=== PATIENT | female | born 1975 | race Caucasian/White ===

== ENCOUNTER 2021-03-16 03:59 | Emergency (ER) | payer OTHER ==
[2021-03-16] MEDS ORDERED: LORazepam 2 MG/ML SDV IVPUSH ONE ×3 (04:43→12:24)
[2021-03-16 04:44] LABS: CARBON DIOXIDE,CO2 26.2 mmol/L (21.0-32.0); POTASSIUM,K 3.9 mmol/L (3.5-5.1)
--- NOTE | 2021-03-16 04:49 | EDM.PDOC ---
<Ibrahima Sevilla - Last Filed: 03/16/21 05:11> ED HPI GENERAL MEDICAL PROBLEM - General Chief Complaint: Back Pain or Injury Stated Complaint: SPINAL PAIN; POSSIBLE POST COVID Time Seen by Provider: 03/16/21 04:02 - History of Present Illness INITIAL COMMENTS - FREE TEXT/NARRATIVE: 45-year-old female history of obesity history of baseline spinal disc disease back pain related to bulging disks related to ball riding when she was 18. Recently moved up here from [place]. Not currently on any chronic pain medication but does take benzodiazepines regularly for anxiety. She went to her nephew's birthday constitution party on February 24 and contracted Covid at that constitution party. She became symptomatic on the and tested positive on the . Since the October she has had a gradually progressive numbness and weakness that starts at the level of T8 and has progressed distally since that time becoming denser and more pronounced she was cleared from quarantine on March 09 and on that day she had a fall leading to an acute worsening of her lower back pain. She reports an episode of urinary incontinence kitchen some days ago no history of fecal incontinence. She is able to walk but somewhat unsteady and this weakness is what led to the fall on February 17. She did have an episode of urinary incontinence few days ago that she attributed to the coughing that she was having while she had more classic Covid symptoms. She reports significant constipation over the last several days as well. No fevers no chills no myalgias. Had again cleared from quarantine on March 09. Patient has no history of IV drug abuse. Middle Back Pain Score (Numeric/FACES): 7 - Related Data Allergies Allergy/AdvReac Type Severity Reaction Status Date / Time meperidine [From Demerol] Allergy Intermediate Excitabilit Verified 03/16/21 04:23 y Sulfa (Sulfonamide Allergy Intermediate Hives Verified 03/16/21 04:23 Antibiotics) ED ROS GENERAL - Review of Systems Review Of Systems: See Below Free Text/Narrative/Comment: General: No fever. Skin: No rash. Eyes: No vision problems. ENT: No sore throat. Neck: No neck stiffness. Respiratory: No shortness of breath. Cardiac: No chest pain. Gastrointestinal: No nausea, vomiting or abdominal pain. Urinary: No dysuria. Musculoskeletal: Per HPI Neurologic: Per HPI ED EXAM, GENERAL - Physical Exam Exam: See Below Free Text/Narrative:: General Appearance: No acute distress, appears comfortable Skin: No rash HEENT: Normocephalic/atraumatic, sclera anicteric, mucous membranes moist Neck: Normal range of motion Chest and Lungs: Bilateral breath sounds, clear to auscultation Cardiovascular: Regular rate and rhythm, no murmur Abdomen: Soft, non-tender Back: Midline tenderness at L1-L2 no step-off or deformity Musculoskeletal: No edema or tenderness Neurologic: Diminished sensation starting at the level of T8 and is relatively homogenous from T8 caudally, diminished to absent reflexes in bilateral lower extremities including patellar and Achilles, diminished sensation of the genitals in the anus and diminished rectal tone Psychiatric: Appropriate, cooperative Departure - Departure Disposition: DC/Tfer to Acute Hospital 02 Clinical Impression: Leg weakness, bilateral - Discharge Information Referrals: Kat Rojas DO [Primary Care Provider] - Forms: ED Department Discharge - Assessment/Plan Assessment:: 45-year-old female presenting with objective signs of spinal cord dysfunction. Certainly COVID-19 related myelitis is a consideration though there was a fall on March 09 the spinal symptoms really preceded this. It is possible that there is also a new fracture or bulging disc from this fall that is also leading to cauda equina. However I think this double etiology explanation is much less likely. We do not have neurological specialist or MRI capability at this facility so the patient will need to be transferred to higher level of care for MRI further evaluation and treatment. 0511: [facility] in [place] is not excepting anything other than acute stroke trauma or STEMI. [facility] in [place] is likewise full. I have contacted [facility] [place] [facility]. They will investigate other potential beds in [place]. If none of these are available then we will need to look outside the state. <Juventino Anderson - Last Filed: 03/16/21 16:15> Course - Vital Signs Last Recorded V/S: Last Vital Signs Temp 96.7 F L 03/16/21 04:13 Pulse 63 03/16/21 11:34 Resp 16 03/16/21 11:34 BP 101/43 L 03/16/21 11:34 Pulse Ox 95 03/16/21 11:34 - Orders/Labs/Meds Labs: Laboratory Tests 03/16/21 03/16/21 03/16/21 Range/Units 04:15 04:15 05:15 WBC 18.11 H (4.0-11.0) K/uL RBC 5.49 (4.30-5.90) M/uL Hgb 16.2 H (12.0-16.0) g/dL Hct 47.4 H (36.0-46.0) % MCV 86.3 (80.0-98.0) fL MCH 29.5 (27.0-32.0) pg MCHC 34.2 (31.0-37.0) g/dL RDW Std Deviation 57.4 (28.0-62.0) fl RDW Coeff of Cody 18 H (11.0-15.0) % Plt Count 296 (150-400) K/uL MPV 11.40 (7.40-12.00) fL Neut % (Auto) 74.4 (48.0-80.0) % Lymph % (Auto) 16.8 (16.0-40.0) % [place] % (Auto) 8.4 (0.0-15.0) % Eos % (Auto) 0.3 (0.0-7.0) % Baso % (Auto) 0.1 (0.0-1.5) % Neut # (Auto) 13.5 H (1.4-5.7) K/uL Lymph # (Auto) 3.0 H (0.6-2.4) K/uL [place] # (Auto) 1.5 H (0.0-0.8) K/uL Eos # (Auto) 0.1 (0.0-0.7) K/uL Baso # (Auto) 0.0 (0.0-0.1) K/uL Nucleated RBC % 0.0 /100WBC Nucleated RBCs # 0 K/uL Sodium 140 (136-145) mmol/L Potassium 3.9 (3.5-5.1) mmol/L Chloride 102 (98-107) mmol/L Carbon Dioxide 26.2 (21.0-32.0) mmol/L BUN 12 (7.0-18.0) mg/dL Creatinine 1.0 (0.6-1.0) mg/dL Est Cr Clr Drug Dosing 71.67 mL/min Estimated GFR (MDRD) 60.0 ml/min Glucose 113 H (74-106) mg/dL Calcium 8.7 (8.5-10.1) mg/dL Magnesium 2.1 (1.8-2.4) mg/dL Total Bilirubin 0.3 (0.2-1.0) mg/dL AST 14 L (15-37) IU/L ALT 36 (14-63) IU/L Alkaline Phosphatase 97 (46-116) U/L Total Protein 6.9 (6.4-8.2) g/dL Albumin 3.4 (3.4-5.0) g/dL Globulin 3.5 (2.6-4.0) g/dL Albumin/Globulin Ratio 1.0 (0.9-1.6) SARS-CoV-2 RNA (HARPREET) POSITIVE H (NEGATIVE) Meds: Medications Discontinued Medications Generic Name Dose Route Start Last Admin Trade Name Freq PRN Reason Stop Dose Admin Gadobenate Dimeglumine 20 ml 03/16/21 13:51 03/16/21 13:52 Gadobenate Dimeglumine 529 Mg/Ml 20 Ml Sdv IVPUSH 03/16/21 13:52 20 ml ONETIME STA Administration Hydromorphone HCl 1 mg 03/16/21 14:30 03/16/21 14:43 Hydromorphone 1 Mg/Ml Syringe IVPUSH 03/16/21 14:31 1 mg ONETIME ONE Administration Ketorolac Tromethamine 15 mg 03/16/21 12:24 03/16/21 12:33 Ketorolac 30 Mg/Ml Sdv IVPUSH 03/16/21 12:25 15 mg ONETIME ONE Administration Lorazepam 1 mg 03/16/21 04:43 03/16/21 04:56 Lorazepam 2 Mg/Ml Sdv IVPUSH 03/16/21 04:44 1 mg ONETIME ONE Administration Lorazepam 1 mg 03/16/21 06:59 03/16/21 07:32 Lorazepam 2 Mg/Ml Sdv IVPUSH 03/16/21 07:00 1 mg ONETIME ONE Administration Lorazepam 1 mg 03/16/21 12:24 03/16/21 12:31 Lorazepam 2 Mg/Ml Sdv IVPUSH 03/16/21 12:25 1 mg ONETIME ONE Administration - Re-Assessments/Exams Free Text/Narrative Re-Assessment/Exam: 03/16/21 08:07 Patient care assumed from night ER physician. Patient is awaiting transfer of care, however, there are no beds available. Transfer center is working on finding a bed. I did call MRI and we can get patient in for MRI imaging of the thoracic and lumbar spine at around noon today. 03/16/21 13:51 Patient is currently at MRI. I did call the transfer center and they note that they are still looking but not having any luck finding bouts. 03/16/21 15:56 No gross abnormalities on MRI imaging. Transfer center is still not having any luck finding beds. I did call [facility] which is on diversion. I did call [facility] which is on diversion. I did call [facility] who did not answer the phone. I did call [facility] in [place] who did not answer the phone. I did call [facility] who will call back. 03/16/21 16:03 [facility] also says they will call back. [facility] is on diversion. 03/16/21 16:15 [facility] did not answer. [facility] will take patient; Dr. Hart will admit Departure - Departure Time of Disposition: 16:15 Condition: Good Sepsis Event Note (ED) - Focused Exam Vital Signs: Vital Signs Pulse Resp BP Pulse Ox 03/16/21 11:34 63 16 101/43 L 95 03/16/21 10:50 65 16 101/41 L 94 L 03/16/21 09:50 63 16 100/56 L 95 03/16/21 08:49 66 18 106/57 L 94 L 03/16/21 07:28 63 18 118/77 99 03/16/21 06:44 74 18 128/85 99 03/16/21 05:20 73 18 130/58 L 97
[2021-03-16] MEDS ORDERED: Ketorolac 30 MG/ML SDV IVPUSH ONE (12:24)
[2021-03-16] MEDS ORDERED: Gadobenate Dimeglumine 529 MG/ML 20 ML SDV IVPUSH STA (13:51)
[2021-03-16] MEDS ORDERED: HYDROmorphone 1 MG/ML Syringe IVPUSH ONE (14:30)
--- NOTE | 2021-03-16 15:19 | MR ---
Indication: Numbness and weakness in the lower extremities from T8 down, left greater than right. Recent COVID. Technique: T2, T1, and STIR sagittal as well as T1 and T2 axial sequences were obtained. Post gadolinium T1 images also acquired. Contrast: 20 mL MultiHance. Comparison: None available. Findings: Alignment is anatomic. No evidence for recent fracture, worrisome bone lesion or pars defect. There is some nonenhancing Modic type 2 reactive marrow signal change along the vertebral endplates at L5-S1. No high grade central canal stenosis. The conus and cauda equina are unremarkable, with the tip of the cord at the L1 level. No abnormal intradural IV gadolinium enhancement in the lumbar region. There is a complex cystic oval mass in the right pelvis measuring at least 55 mm, presumably of adnexal origin. Recommend ultrasound follow-up. T12-L1: The disc is negative. The foramina are patent. L1-2: The disc and facets are negative. The foramina are patent. L2-3: Mild disc and bilateral facet degenerative changes with low-grade foraminal narrowing. L3-4: Moderate vacuum disc degeneration with a small shallow central disc herniation. Moderate facet degenerative changes. Mild foraminal narrowing. L4-5: Large radial fissure in the midline posterior annulus. Mild facet osteoarthritis. Mild foraminal narrowing. L5-S1: Moderate-sized shallow right central and subarticular disc extrusion causing slight posterior displacement of the intraspinal segment of the right S1 nerve root. Impression: 1. No evidence for intrinsic pathology, extrinsic compression or pathologic IV gadolinium enhancement involving the conus medullaris or cauda equina. 2. At L5-S1 there is a moderate-sized shallow right central and subarticular extrusion with apparent impingement upon the right S1 root. 3. At L4-5 there is a large enhancing radial fissure in the midline posterior annulus. No meliton disc herniation is identified at this level. 4. A 55 mm complex cystic lesion is noted in the right pelvis, partially included on this study. Consider ultrasound follow-up. Dictated by Joo Schmidt MD @ 03/16/2021 3:17:46 PM (Electronically Signed)
--- NOTE | 2021-03-16 15:27 | MR ---
Indication: Numbness from T8 down. Technique: T2, T1, and STIR sagittal as well as gradient echo axial sequences were obtained. Post gadolinium T1 imaging is also acquired. Contrast: 20 mL MultiHance. Comparison: None available. Findings: Mildly exaggerated kyphosis in the lower thoracic region. Slight chronic loss of anterior vertebral body height at few lower thoracic levels. Small chronic Schmorl`s node endplate indentations. No evidence for stress reaction, recent fracture or worrisome bone lesion. Multilevel low-grade disc degenerative changes. Small left central disc extrusion at T3-4. Small left central disc herniation at T4-5. Small right-sided disc herniation at T8-9. No large or frankly lateralizing disc herniations are identified The central canal is patent. No intrinsic thoracic cord abnormalities identified. No abnormal gadolinium enhancement is identified involving the thoracic spinal cord or spinal canal. The thoracic neural foramina are patent. The paravertebral soft tissues are grossly negative. Impression: 1. The thoracic cord is normal in morphology and signal intensity. 2. No abnormal contrast enhancement involving the thoracic spinal cord or leptomeninges. 3. Three small thoracic disc herniations noted. Dictated by Joo Schmidt MD @ 03/16/2021 3:25:19 PM (Electronically Signed)
[2021-03-16] MEDS ORDERED: Morphine 4 MG/ML Syringe IVPUSH ONE (18:26)
== END 2021-03-16 18:35 ==
LOC: MW.ED 03:59
DX: U07.1 COVID-19 (principal); R53.1 Weakness; Z88.2 Allergy status to sulfonamides; Z88.5 Allergy status to narcotic agent
CPT/HCPCS: 36415; 72157; 72158; 80053; 83735; 85025; 87635; 96374; 96375; 96376; 99285; A9577; J1170; J1885; J2060; J2270; U0002

== ENCOUNTER 2023-02-06 09:23 | Emergency (ER) | payer OTHER | END 2023-02-06 10:49 | disposition home or self-care (01) | LOC: MW.ED 09:23 | DX: M54.32 Sciatica, left side (principal); G89.29 Other chronic pain; E66.9 Obesity, unspecified; F17.210 Nicotine dependence, cigarettes, uncomplicated; Z88.1 Allergy status to other antibiotic agents; Z88.8 Allergy status to other drugs, medicaments and biological substances; Z68.42 Body mass index [BMI] 45.0-49.9, adult | CPT/HCPCS: 99283; 99284 ==

== ENCOUNTER 2024-08-20 06:56 | Day surgery (SDC) | payer OTHER ==
[2024-08-20] MEDS ORDERED: propofoL 500 MG/50 ML 50 ML ONE (07:33)
[2024-08-20] MEDS ORDERED: Lidocaine 2% 5 ML SDV ONE (07:34)
[2024-08-20] MEDS: Lactated Ringers 1,000 ML IV SCH (07:58)
[2024-08-20] MEDS ORDERED: Propofol 200 MG/20 ML SDV ONE ×2 (08:01→08:18)
[2024-08-20] MEDS ORDERED: Lactated Ringers 1,000 ML IV SCH (08:45)
== END 2024-08-20 09:15 | disposition home or self-care (01) ==
LOC: MW.SDS 06:56
PROVIDERS: ATTEND Surgery
DX: Z12.11 Encounter for screening for malignant neoplasm of colon (principal); K57.30 Diverticulosis of large intestine without perforation or abscess without bleeding; Z86.0100 Personal history of colon polyps, unspecified
CPT/HCPCS: 45378; J2704; J7120; J3490